=== PATIENT | female | born 1985 | race Caucasian/White ===

== ENCOUNTER 2018-03-07 21:56 | Emergency (ER) | payer BC ==
[~2018-03-07] VITALS: Wt 51.0 kg
[2018-03-07] MEDS ORDERED: CEPHALEXIN 500 MG CAP PO ONE (23:00)
[2018-03-07] MEDS ORDERED: IBUPROFEN 600 MG TAB PO ONE (23:30)
[2018-03-07] MEDS ORDERED: CEPH-443 PO (23:40)
[2018-03-07 23:49] VITALS: BP 118/62; PULSE 68; RESP 16
--- NOTE | 2018-03-07 23:50 | ERD ---
ER Documentation Chief Complaint Chief Complaint BIB SELF, CC: BILATERAL FLANK PAIN, DYSURIA X 3 DAYS HPI This 32-year-old otherwise healthy female presents with bilateral flank pain and dysuria for the last 3 days. She denies nausea vomiting, she is otherwise healthy, she has not had any vaginal bleeding or discharge, she states she has no prior history of UTIs. ROS All systems reviewed and are negative except as per history of present illness. Medications Home Meds Active Scripts Cephalexin* (Keflex*) 500 Mg Capsule, 500 MG PO QID for 7 Days, CAP Prov:FRANNY MAX MD 03/07/18 Allergies Allergies: Coded Allergies: No Known Allergy (Unverified , 03/07/18) PMhx/Soc Medical and Surgical Hx: pt denies Medical Hx, pt denies Surgical Hx Hx Alcohol Use: No Hx Substance Use: No Hx Tobacco Use: No Smoking Status: Never smoker Physical Exam Vitals Vital Signs Date Temp Pulse Resp B/P (MAP) Pulse Ox O2 O2 Flow FiO2 Time Delivery Rate 03/07/18 98.5 92 19 110/65 100 22:00 (80) Physical Exam Const: No acute distress Head: Atraumatic Eyes: Normal Conjunctiva ENT: Normal External Ears, Nose and Mouth. Neck: Full range of motion. No meningismus. Resp: Clear to auscultation bilaterally Cardio: Regular rate and rhythm, no murmurs Abd: Soft, non tender, non distended. Normal bowel sounds Skin: No petechiae or rashes Back: No midline or flank tenderness Ext: No cyanosis, or edema Neur: Awake and alert Psych: Normal Mood and Affect Results 24 hrs Laboratory Tests Test 03/07/18 22:24 03/07/18 22:26 POC Beta HCG, Qualitative NEGATIVE Urine Color YELLOW Urine Clarity CLOUDY Urine pH 5.0 Urine Specific [place] 1.016 Urine Ketones NEGATIVE mg/dL Urine Nitrite NEGATIVE mg/dL Urine Bilirubin NEGATIVE mg/dL Urine Urobilinogen NEGATIVE mg/dL Urine Leukocyte Esterase 3+ [place]/ul Urine Microscopic RBC 79 /HPF Urine Microscopic WBC > 182 /HPF Urine Squamous Epithelial Cells FEW /HPF Urine Bacteria FEW /HPF Urine Mucus FEW /HPF Urine Hemoglobin 2+ mg/dL Urine Glucose NEGATIVE mg/dL Urine Total Protein 2+ mg/dl Current Medications Medications Dose Sig/Benny Start Time Status Last (Trade) Ordered Route PRN Stop Time Admin Dose Reason Admin Cephalexin 500 mg ONCE ONCE 03/07/18 DC 03/07/18 (Keflex) PO 23:00 22:53 03/07/18 23:01 Ibuprofen 600 mg ONCE ONCE 03/07/18 DC 03/07/18 (Motrin) PO 23:30 23:18 03/07/18 23:31 Procedures/MDM 31-year-old female presents with dysuria and flank pain. On exam she has no peritoneal signs on abdominal exam, she has no signs or symptoms concerning for pelvic inflammatory disease, her urinalysis returned showing pyuria, suspect most likely UTI/pyelonephritis. Her ultrasound showed no evidence of hydronephrosis, I have a low suspicion for kidney stones, she had notable RBCs in her urine, however she is currently on her period. Patient will be started on Keflex, at discharge she was in no acute distress. Departure Diagnosis: Primary Impression: Pyelonephritis Additional Impression: Flank pain Condition: Stable Patient Instructions: Pyelonephritis, Female (Adult) Additional Instructions: Call your primary care doctor TOMORROW for an appointment during the next 2-3 days.See the doctor sooner or return here if your condition worsens before your appointment time. FRANNY MAX MD Mar 07, 2018 23:50
== END 2018-03-07 23:49 | disposition home or self-care (01) ==
LOC: E/R 21:56
DX: N12 Tubulo-interstitial nephritis, not specified as acute or chronic (principal)
CPT/HCPCS: 76775; 81001; 81025; 87086; Z7610